=== PATIENT | female | born 1965 | race Caucasian/White ===

== ENCOUNTER → 2021-08-18 10:15 | Outpatient (BNVA) | payer BC, SELFPAY | PROVIDERS: Family Provider Nurse Practitioner Family; PCP Nurse Practitioner Family; Visit Provider Registered Nurse | DX: Z20.822 Contact with and (suspected) exposure to COVID-19 (principal); J32.9 Chronic sinusitis, unspecified | CPT/HCPCS: 87635 ==

== ENCOUNTER 2023-01-02 08:39 | Outpatient (CLI) | payer OTHER, SELFPAY ==
--- NOTE | 2023-01-02 08:45 | MR_ITS ---
WS: [id number] MRI LUMBAR SPINE NONCONTRAST TECHNIQUE: Sagittal T1, T2 and STIR imaging. Axial T1 and T2 imaging. CLINICAL INFORMATION: M54.30 - Sciatica, unspecified side COMPARISON: MRI 2017 FINDINGS: Mild lumbar curve. No acute compression. Grade 1 anterolisthesis L4 on L5. Tiny shallow central protr usion T11-T12. Grade 1 anterolisthesis L4 on L5 has progressed compared to 2017. Disc space narrowing worse L5-S1. L1-L2: Mild facet arthropathy. Spinal canal and foramen are patent. L2-L3: Mild annular bulging. Moderate facet arthropathy. Spinal canal and foramen are patent. L3-L4: Mild annular bulging. Moderate facet arthropathy. Spinal canal and foramen are patent. L4-L5: Grade 1 anterolisthesis with shallow LEFT pericentral protrusion. Impingement on the traversin g LEFT L5 nerve root in the subarticular recess. Moderate central canal stenosis. Mild LEFT greater t hensley RIGHT foraminal narrowing. Moderate facet arthropathy with small RIGHT greater than LEFT effusion s. L5-S1: Disc osteophyte complex with endplate ridging. Mild facet arthropathy. Slight contact of the t raversing S1 nerve roots bilaterally. Mild RIGHT greater than LEFT bony foraminal narrowing. Visualized pelvic bony structures: Normal. Paravertebral soft tissues: Normal. MR/MR lumbar spine wo con* [id number] IMPRESSION: 1. Mild lumbar curve. No acute compression. Grade 1 anterolisthesis L4 on L5 p rogressed compared to previous. 2. Moderate central canal stenosis L4-L5 is new compared to previous. LEFT per icentral protrusion impinges the traversing LEFT L5 nerve root. Mild bilateral foraminal narrowing at this level LEFT greater than RIGHT. 3. Tiny shallow central protrusion L5-S1 with slight contact of the traversing S1 nerve roots. Mild bilateral bony foraminal narrowing. 4. Moderate facet arthropathy L4-L5 with small RIGHT facet effusion compatible with synovitis. This is new from previous. This can be seen with instability.
== END 2023-01-02 08:40 | disposition home or self-care (01) ==
PROVIDERS: PCP Nurse Practitioner Family; Visit Provider Nurse Practitioner Family
DX: M54.30 Sciatica, unspecified side (principal); M48.061 Spinal stenosis, lumbar region without neurogenic claudication; M51.27 Other intervertebral disc displacement, lumbosacral region; M47.816 Spondylosis without myelopathy or radiculopathy, lumbar region
CPT/HCPCS: 72148

== ENCOUNTER → 2023-01-12 08:03 | Outpatient (BNVA) | payer OTHER, SELFPAY | PROVIDERS: PCP Nurse Practitioner Family; Referring Provider Nurse Practitioner Family; Visit Provider Physician Assistant | DX: M43.16 Spondylolisthesis, lumbar region (principal) | CPT/HCPCS: 72110 ==

== ENCOUNTER → 2023-02-24 11:13 | Outpatient (BNVA) | payer OTHER, SELFPAY | PROVIDERS: PCP Nurse Practitioner Family; Visit Provider Nurse Practitioner Family | DX: I10 Essential (primary) hypertension (principal); E78.5 Hyperlipidemia, unspecified; Z79.899 Other long term (current) drug therapy; M51.37 Other intervertebral disc degeneration, lumbosacral region | CPT/HCPCS: 80053; 80061 ==

== ENCOUNTER → 2024-10-03 09:29 | Outpatient (BNVA) | payer OTHER, SELFPAY | PROVIDERS: PCP Nurse Practitioner Family; Visit Provider Nurse Practitioner Family | DX: I10 Essential (primary) hypertension (principal); M54.30 Sciatica, unspecified side; F17.210 Nicotine dependence, cigarettes, uncomplicated | CPT/HCPCS: 80053; 85025 ==

== ENCOUNTER → 2025-08-14 15:28 | Outpatient (BNVA) | payer OTHER, SELFPAY | PROVIDERS: PCP Nurse Practitioner Family; Visit Provider Orthopaedic Surgery | DX: Z01.818 Encounter for other preprocedural examination (principal); M47.816 Spondylosis without myelopathy or radiculopathy, lumbar region; M43.16 Spondylolisthesis, lumbar region; M51.26 Other intervertebral disc displacement, lumbar region | CPT/HCPCS: 36415; 72100; 80053; 81001; 85025 ==

== ENCOUNTER → 2025-08-19 16:19 | Outpatient (BNVA) | payer OTHER, SELFPAY | PROVIDERS: PCP Nurse Practitioner Family; Visit Provider Nurse Practitioner Family | DX: Z01.818 Encounter for other preprocedural examination (principal) | CPT/HCPCS: 71046 ==

== ENCOUNTER 2025-09-10 09:44 | Observation (INO) | payer OTHER, SELFPAY ==
[2025-09-10] VITALS (47 sets, daily range): BP systolic 93–178; BP diastolic 53–93; PULSE 62–91; RESP 10–26; TEMP 36.4–37.6; O2SAT 90–96; BMI 38.7; BMI 44.7
--- NOTE | 2025-09-10 06:20 | ANES.PREANE2 ---
Pre-Anesthetic Assessment Height/Weight: Height 5 ft 2 in Preop Diagnosis: L4/5 spondylolisthesis; lumbar stenosis neurogenic claudication Operation Date: 09/10/25 07:00 Proposed Procedures p Posterior Lumbar Interbody Fusion PLIF(Not Applicable) - Stanford Moffett, DO Was Beta Anatoliy taken within 24 hours: N/A Was Clonidine taken within 24 hours: N/A Social Tobacco and No alcohol Exam alert, oriented x 3, clear to auscultation bilaterally and regular rate & rhythm Airway Submandibular: within normal limits Cervical ROM: within normal limits Mallampati: Class III Comments: Comments: Missing a few teeth, denies any loose. White plaque on tongue Anesthetic Plan ASA status: 3 Anesthesia: General Other: No prior issues with anesthesia NPO since yesterday evening History of hypertension on amlodipine and telmisartan. Preop BP 178/92 Current smoker Labs reviewed from 08/14/2025 and acceptable for procedure. Hemoglobin 13.5 Plan for GETA Medications/Allergies Home Medications ?Medication ?Instructions ?Recorded ?Confirmed ?Last Taken ?Type acetaminophen [Tylenol] 500 mg PO BID 06/23/22 09/09/25 09/09/25 History celecoxib 100 mg capsule (Celebrex) 100 mg PO BID 90 days #180 caps 10/03/24 09/09/25 09/09/25 Rx garlic 500 mg capsule 500 mg PO DAILY 10/03/24 09/09/25 08/26/25 History sour ventura extract 1,000 mg 1,000 mg PO DAILY 10/03/24 09/09/25 09/09/25 History capsule (Tart Ventura Extract) telmisartan 40 mg tablet (Micardis) 40 mg PO DAILY #90 tabs 10/03/24 09/09/25 09/09/25 Rx amlodipine 10 mg tablet 10 mg PO DAILY #90 tabs 08/20/25 09/09/25 09/09/25 Rx Allergies Allergy/AdvReac Type Severity Reaction Status Date / Time aspirin Allergy unk Verified 09/10/25 06:11 Current Medications Generic Name Dose Route Start Last Admin Trade Name Freq PRN Reason Stop Dose Admin Sodium Chloride 1,000 mls @ 30 mls/hr 09/10/25 06:00 09/10/25 06:16 Sodium Chloride 0.9% IV 09/11/25 05:59 30 mls/hr .Q24H AZAR Administration PFSH Anesthesia Medical History History of ganglion cyst Surgical History History of hysterectomy partial 22 years ago History of tubal ligation Social History Smoking and tobacco/nicotine status: unknown if used tobacco/nicotine Alcohol intake: never Substance/Drug Use: never Adopted: No Caregiver/support person: No Lives independently: Yes Household members: spouse Marital status: Current occupational status: employed Sexually active: Yes Do you think of yourself as: Straight/Heterosexual Current gender identity: Female
--- NOTE | 2025-09-10 06:27 | W.PM.OPSUD ---
Surgery/Procedure H&P Update DATE OF PROCEDURE: September 10, 2025 DATE H&P PERFORMED: 08/14/25 H&P UPDATE INFORMATION: I have reviewed H&P completed within last 30 days, I have examined patient prior to procedure and No changes to prior documentation PREOP DIAGNOSIS: L4/5 spondylolisthesis; lumbar stenosis neurogenic claudication PLANNED PROCEDURE: Operation Date: 09/10/25 07:00 Proposed Procedures p Posterior Lumbar Interbody Fusion PLIF(Not Applicable) - Stanford Moffett DO
[2025-09-10] MEDS: ceFAZolin 2,000 mg SDV 2000 MG IVP ×3 (07:00→22:52)
[2025-09-10] MEDS: tobramycin 40 mg/mL SDV 2mL 120 MG XX (08:15)
[2025-09-10] MEDS: lidocaine-epi 1% 20 mL INJ 10 ML INJECTION (08:16)
[2025-09-10] MEDS: heparin, porcine 1,000 unit/mL INJ 10 mL 10000 UNIT IRRIGATION (08:40)
--- NOTE | 2025-09-10 10:16 | PM.OP ---
Operative Report Date of procedure: September 10, 2025 Pre-op diagnosis: L4/5 spondylolisthesis Lumbar stenosis with neurogenic claudication Post-op diagnosis: same Procedure done: 1. L4/L5 interbody fusion with posterolateral fusion 2. Instrumentation L4/L5 3. Cage at L4/5 4. L4/L5 laminectomy with facetectomy 5. use of autograft from same incision 6. allograft 7. Bone marrow aspirate from right iliac crest 8. Use of computer navigation stereotactic for the spine Surgeon: Stanford Moffett DO Estimated blood loss (mL): 150 Procedure: 1. L4/L5 interbody fusion with posterolateral fusion 2. Instrumentation L4/L5 3. Cage at L4/5 4. L4/L5 laminectomy with facetectomy 5. use of autograft from same incision 6. allograft 7. Bone marrow aspirate from right iliac crest 8. Use of computer navigation stereotactic for the spine Patient is brought to the operative suite. After undergoing anesthesia, the patient had neuro monitoring attached. Patient was then placed in the prone position on the Tevin table. All areas of impingement were well-padded. Patient was then prepped and draped in the normal sterile fashion. Skin incision was then made over the L4/L5 space. Subperiosteal dissection was made out to the transverse processes of L4 and L5 bilaterally. Prior to placing the pedicle screws the [employer] bone marrow aspirate kit was used to aspirate bone marrow aspirate from right iliac crest. This was done by using the sharp probe to open up the bone. Aspiration was performed and then the blunt probe was then used to dissect down to through the bone tunnel. An aspirating well drawn back a millimeter approximately 20 cc of bone marrow aspirate was used. Admixed with the allograft and autograft bone that will be used. The fiducial was placed 2 pins were placed into the right iliac crest and easily removed at the end of the case. The fiducial was attached the C-arm was brought in the patient information from the C-arm was loaded into the computer for placement of the pedicle screws using computer navigation. The technique for placing the pedicle screws was to use a drill followed by the gearshift probe linked to computer navigation. Followed by the ball probe to feel the superior inferior medial lateral jarquin of the pedicles. Then placement of the screws using computer navigation. Was done at each pedicle. Screws were placed at L4 bilaterally and L5 bilaterally. Next attention was brought to performing the laminectomy of L4. This was done using the high-speed bur Kerrisons and curettes. Once the lamina was removed and then attention was brought to performing a partial facetectomy on the contralateral side. This was done again using the high-speed bur curettes and Kerrisons. The ligamentum flavum was taken down bilaterally from L4 to L5. Attention was then brought to the facet on the ipsilateral side. The facet was taken down. The L5 nerve was decompressed as it passed around the L5 pedicle. The laminectomy was done for purposes of decompressing the nerve as well as placement of the cage. The L5 nerve was identified as it traversed through the L4/L5 foramen. The thecal sac was identified and retracted. The L4/L5 disc base was identified. Using a knife the disc base was opened. And then sequential ortiz were placed. The first shaver was a 6 and the last shaver was a 8. Using a pituitary and down going curette the endplates were scraped and disc material was removed from the space. Once adequate decompression of the disc base was felt to be had. Osteoamp sponge was packed into the anterior aspect of the disc base. Then a size 9 cage from [employer] was placed after packing osteoamp into the cage. While placing the cage the thecal sac and S1 nerve was protected. C arm was used to ensure that the cages placed in the appropriate position. Attention was then brought to attaching the rods to the screws placed in the L4 bilaterally to L5 bilaterally. Caps were torqued into position. Locking the construct in place. Wound was copiously irrigated and then attention was brought to decorticating the facets and transverse processes laterally. Bone that was taken down from the lamina was used along with osteoamp fibers and sponges were packed into the lateral gutters along the facet joints. This was done bilaterally. Wound was then closed in a layered fashion starting with the thoracolumbar fascia. 0-vicryl was used the sub cutaneous tissue was closed with 2-0 vicryl and skin with 4-0 monocryl. Glue was then used to seal the skin and a steril dressing was applied. Patient was then placed in the supine position. The endotracheal tube was removed and patient was transferred to the PACU in stable condition.
[2025-09-10] MEDS: fentaNYL 50 mcg/mL INJ 2mL IVP (10:35)
--- NOTE | 2025-09-10 11:30 | ANE.PACU2 ---
Inpatient post-anesthesia follow up: Airway intact: Yes Vital signs: Temperature 99.7 F Pulse Rate 84 Respiratory Rate 18 Blood Pressure 148/70 Pulse Oximetry 93 Oxygen Delivery Me thod Nasal Cannula Oxygen Flow Rate 4 Fraction of Inspir ed Oxygen Hydration adequate: Yes Nausea and vomiting: No Pain level: 1 Mental status: Baseline Additional Comments: Difficulty weaning oxygen requirement in PACU. SpO2 93% on 10 L simple facemask. Decision was made to admit patient to ICU for further evaluation. Spoke with patient's who is agreeable
--- NOTE | 2025-09-10 11:49 | SUR.OPER ---
spoke will dr samuel due to oxygen concerns. pt transfered to ICU 9
--- NOTE | 2025-09-10 12:01 | XR_ITS ---
WS: [id number] XR chest 2V* [id number] REASON FOR EXAM: hypoxemia FINDINGS: Mild tortuosity and ectasia of the thoracic aorta. Compared to the previous examination of 08/19/2025 there appears to be increased opacity in the left lower hemithorax. This likely is due to the hypoexpansion of the lungs and underexposure of the examination. No other interval change is identified. XR/XR chest 2V* [id number] IMPRESSION: Probably stable examination. Recommend follow-up with better inspiration and te chnique.
--- NOTE | 2025-09-10 13:00 | XR_ITS ---
WS: [id number] XR lumbar spine 2-3V* [id number] REASON FOR EXAM: L4/L5 interbody fusion with posterolateral fusion FINDINGS: Posterior decompression with pedicle screws and interconnecting rods and interbody fusion device L4-L5. Surgical appliances are intact and in proper position and alignment. XR/XR lumbar spine 2-3V* [id number] IMPRESSION: Posterior lumbar fusion without abnormality.
--- NOTE | 2025-09-10 16:50 | PC.NURSE ---
Report was given to Jayda MYERS in [facility].
[2025-09-10] MEDS: HYDROcodone-acetaminophen 5-325 mg Tablet PO ×2 (17:11→22:51)
[2025-09-11] VITALS: BP 116/63; PULSE 85; RESP 16; TEMP 36.9; O2SAT 91
[2025-09-11 04:00] VITALS: BP 128/67; PULSE 84; RESP 18; TEMP 36.8; O2SAT 93
[2025-09-11] MEDS: HYDROcodone-acetaminophen 5-325 mg Tablet PO (04:46)
[2025-09-11] MEDS: ceFAZolin 2,000 mg SDV 2000 MG IVP (06:33)
--- NOTE | 2025-09-11 06:42 | PC.NURSE ---
patient refused to take morning meds, stating she already took her own, when i explained to her that we provide meds here and if not we do loclk them up she stated she called ahead and they told her she could bring them
[2025-09-11 07:27] VITALS: BP 129/78; PULSE 80; RESP 16; TEMP 36.7; O2SAT 93
--- NOTE | 2025-09-11 09:44 | P.DS_ITS ---
Discharge Providers Date of Admission: 09/10/25 09:44 Date of Discharge: September 11, 2025 Attending Provider at Admission: Stanford Moffett DO Attending Provider at Discharge: Stanford Moffett DO Primary Care Provider: Shadi Díaz Reason for Visit Reason for Visit: M48.062 Physical Exam Narrative: Patient doing well patient is ambulating sitting in chair currently ready to go home. Urinary Catheter Management: Adames: Cath Placed During This Visit: yes, but has since been removed by the nurse Reason for Continuing Indwelling Catheter: Decision to DC Catheter Urinary Catheter Date of Insertion: 09/10/25 Urinary Catheter Time of Insertion: 07:10 Date Urinary Catheter Removed: 09/11/25 Time Urinary Catheter Discontinued: 06:12 Discharge Data Studies Completed and Pending Completed Studies During Hospitalization Category Date Time Status XR chest 2V* [id number] Stat Exams 09/10/25 12:01 Completed XR lumbar spine 2-3V* [id number] Routine Exams 09/10/25 13:00 Completed Radiology Impressions Chest X-Ray 09/10/25 12:01 IMPRESSION: Probably stable examination. Recommend follow-up with better inspiration and technique. Lumbar Spine X-Ray 09/10/25 13:00 IMPRESSION: Posterior lumbar fusion without abnormality. Laboratory Results POC Glucose 142 mg/dL (70-110) H 09/10/25 12:55 Blood Type B Positive 09/10/25 06:39 Rho(D) Type Rh positive 09/10/25 06:39 Antibody Screen Negative 09/10/25 06:39 Vitals Last Vital Signs Temp 98.1 F 09/11/25 07:27 Pulse 80 09/11/25 07:27 Resp 16 09/11/25 07:27 BP 129/78 09/11/25 07:27 Pulse Ox 93 09/11/25 07:27 O2 Del Method Room Air 09/11/25 07:27 O2 Flow Rate 4 09/10/25 14:05 Discharge Plan Discharge Patient Disposition: Home Condition: Stable Prescriptions: New hydrocodone-acetaminophen 5-325 mg tablet 1 tab PO Q4H PRN (Reason: pain) 7 Days Qty: 42 0RF Continued acetaminophen [Tylenol] 500 mg PO BID garlic 500 mg capsule 500 mg PO DAILY Tart Ventura Extract 1,000 mg capsule 1,000 mg PO DAILY telmisartan [Micardis] 40 mg tablet 40 mg PO DAILY Qty: 90 3RF celecoxib [Celebrex] 100 mg capsule 100 mg PO BID 90 Days Qty: 180 3RF amlodipine 10 mg tablet 10 mg PO DAILY Qty: 90 3RF Discharge Order = DC NOW: Discharge Order (Routine); Ordered 09/11/25 Ordered By: Stanford Moffett Other Ambulatory Orders: DME: Walker (Order) Location: None Selected Ordered By: Stanford Moffett [place] [facility] [place] [facility] [place] Stanford Moffett DO [Physician, Orthopedics] - 09/18/25 8:45 am Discharge Diet: Advance as tolerated Discharge Activity: Limit activity as instructed Patient Instructions: Acute Wound Care (DC), Opioid Safety, Post Anesthesia Care, Patient Portal & Malick Instructions Activity Restrictions/Additional Instructions: Thank you for choosing [facility] for your care! The following is a list of instructions, from your provider, to follow upon your discharge to ensure you have the optimal recovery from your recent injury or surgery. Follow-up care is a cedillo part of your treatment and safety. Be sure to make and go to all appointments, and call your doctor if you are having problems. If you do not already have a follow-up appointment made, call Dr. Moffett's office in the next 1-3 days to make follow up appointment for 1 weeks at [phone]. It is also a good idea to know your test results and keep a list of the medicines you take. Medications will be prescribed for you at your provider?s discretion. These medications are to be used as instructed;if they are taken more often that prescribed they will not be refilled early and in most cases will not be refilled at all. > When a refill is needed,you should contact our office 2-3 business days beforeyour prescription runs out. Medications will NOTbe refilled by aeronautical engineering professor providers after hours! > Many pain medications contain Tylenol (Acetaminophen). Do not consume more than 4,000 mg of Tylenol per day in total with any combination of medications. > Pain medications can cause constipation. Please use an over the counter stool softener as directed, while taking pain medications. Consult your local pharmacist with questions or recommendations on stool softeners. If constipation persists, contact our office or your primary care provider. > While under our care,you are not to receive pain medications or other controlled substances from any other provider unless our office is notified and approves. Any attempts to do so will result in refusal to prescribe any further pain medications and possible dismissal from our practice. ? Patient should keep dressing on for 1 week will change in the clinic. ? Walking is essential for the healing process after surgery. We would like you to slowly advance your walking. This should be done on relatively flat clear ground (inside or out) or can be done on a treadmill. Remember this goal does not have to happen all at once, slowly increase your dis tance and duration. This can be broken into more more than one walk per day as tolerated. Patients who walk as directed after surgery rarely require Physical Therapy. In the unlikely event this issue arises your provider will direct hospital staff to make the appropriate arrangements. ? No lifting over 5 pounds {a gallon of milk) or bending/twisting until further notice. Each of these activities places an unnecessary amount of stress onto the body and can impede the delicate healing process. > Instead of bending at the waist, keep your back straight and bend at the knees. > Instead of twisting your torso, keep your back straight and turn your entire body with your feet. ? You may sleep in any position which makes you comfortable.Many patients find comfort sleeping in a reclining chair. It is not abnormal to have difficulty sleeping for the first several weeks following your surgery. We recommend trying Benadryl or Tylenol PM as directed to help with your sleeping difficulties. Both medications are over the counter and available without prescription. ? NO SMOKING!!!Smoking dramatically increases the probability of developing postoperative wound infections. ? Common complaints after lumbar and/or thoracic spine surgery include, but are not limited to: numbness and/or tingling in the legs, pain around the incision and surrounding tissues, muscle spasms, or stiffness of the middle to low back. Contact our office if these symptoms persist or if an acute change occurs. ? No driving for the first 3-5 days, and not while taking narcotics until seen at your follow-up appointment and cleared.There are no restrictions for riding on short trips, however if you take a longer trip, arrangements should be made to make regular stops to get out of the vehicle and stretch . ? Swelling is an unfortunate event that will take place with any surgery and is the primary source of your postoperative discomfort. While walking and regular approved activities helps control inflammation, there are additional steps you can take to minimize swelling. > Place ice over the surgical site and surrounding tissue for twenty minutes, followed by applying a low/medium heat (heating pad) for an additional twenty minutes every 1-2 hours as needed for pain relief. > You may use of over the counter anti-inflammatory medications (Ibuprofen, Motrin, Aleve, Advil, etc) as directed on the package label. These types of medicines will significantly reduce the amount of discomfort you experience after surgery from swelling. It should be noted that if you have an allergy to any of these medications, or a history of ulcers or kidney disease you should consult your primary care provider prior to starting these medications. Discharge Attestations Time Spent in Discharge Care*: less than 30 min Quality Metrics Clinical Quality Measures [ No reported AMI, CVA or VTE this stay] Coding Level of Care Code Acute Code for Consuelog Fwrichie
[2025-09-11 11:25] VITALS: BP 129/78; PULSE 80; RESP 16; TEMP 36.7; O2SAT 93
== END 2025-09-11 11:26 | disposition home or self-care (01) ==
LOC: MEDSURG 09:44 → ICU 11:42 → MEDSURG 16:42
PROVIDERS: Admitting Provider Orthopaedic Surgery; PCP Nurse Practitioner Family; Visit Provider Orthopaedic Surgery
PROC: (CPT 22612; principal; 2025-09-10 07:00)
DX: M48.062 Spinal stenosis, lumbar region with neurogenic claudication (principal); M43.16 Spondylolisthesis, lumbar region; I10 Essential (primary) hypertension; F17.200 Nicotine dependence, unspecified, uncomplicated
CPT/HCPCS: 22633; 22614; 63052; 20939; 22853; 20930; 22840; 36416; 51702; 71046; 72100; 76000; 82962; 86850; 86900; 97110; 97116; 97162; A4649; C1713; C1776; G0378; J0131; J0690; J1100; J1171; J1644; J2250; J2371; J2405; J2704; J3010; J3260; J3373; J3490; J7030; J7120; J9999; P9045

== ENCOUNTER → 2025-09-23 08:06 | Outpatient (BNVA) | payer OTHER, SELFPAY | PROVIDERS: PCP Nurse Practitioner Family; Visit Provider Orthopaedic Surgery | DX: Z98.890 Other specified postprocedural states (principal); Z98.1 Arthrodesis status | CPT/HCPCS: 72100 ==